=== PATIENT | female | born 1965 | race Caucasian/White ===

== ENCOUNTER → 2017-10-07 | Outpatient (CLI) | payer OTHER ==
[~2017-10-07] MED LIST: ALBU90OI; ALBU90OI6 INH; Aspir 8181 MG; CITA20 PO; Calcium 600 MG1 EACH PO; DIPATR PO; DIPH50 PO; ERGO50000 PO; FISH1000 PO; FLAX PO; FLUSAL1005; FLUSAL2505 INH; FLUSAL5005 IH; FLUSAL5005 INH; HAIR, SKIN & N1 EAC1 PO; HYDACE25S PR; HYDACE5 PO; IBUP800 PO; LORA10 PO; LORA10ER PO; MEGA BIOTIN10000 MCG PO; METR500 PO; MOMENI; MONT10T; MONT10T PO; Magnesium500 M1 PO; Multiple Vitam1 EAC1 PO; OMEP20ER PO; OXYACE5T PO; POLY500 PO; POTCHL20ER PO; PRED20 PO; PROM25 PO; Phentermine HCl15 MG PO; RISE35; RXHYDACE PO; THYROID; TIROSINT50 MCG PO; Zegerid 40 MG1 EACH PO
[2017-10-07 16:05] LABS: BASOPHILS ABSOLUTE AUTO 0.07 K/mm3 (0.00-0.23); BASOPHILS PERCENT AUTO 0 % (0-2); EOSINOPHILS ABSOLUTE AUTO 0.06 K/mm3 (0.00-0.68); EOSINOPHILS PERCENT AUTO 0 % (0-6); Hematocrit 52.2 % (33.0-51.0); Hemoglobin 16.9 g/dL (11.5-16.0); IMMATURE GRAN ABSOLUTE AUTO 0.08 K/mm3 (0.00-0.10); IMMATURE GRAN PERCENT AUTO 1 % (0-1); LYMPHOCYTES PERCENT AUTO 29 % (21-46); MONOCYTES PERCENT AUTO 9 % (4-13); Mean Corpuscular HGB 25.8 pg (26.0-34.0); Mean Corpuscular HGB Conc 32.4 g/dL (31.5-36.5); Mean Corpuscular Volume 80 fL (80-100); Mean Platelet Volume 11.3 fL (9.1-12.4); NEUTROPHILS ABSOLUTE AUTO 10.22 K/mm3 (1.96-9.15); NEUTROPHILS PERCENT AUTO 61 % (41-73); Platelet Count 403 K/mm3 (150-400); RDW Coefficient Variation 16.9 % (11.7-14.2); RDW Standard Deviation 43.8 fL (35.1-46.3); Red Blood Cell Count 6.55 M/mm3 (3.80-5.20); White Blood Cell Count 16.83 K/mm3 (4.00-11.30)
[2017-10-07 16:16] LABS: Albumin/Globulin Ratio 0.7 (0.8-1.8); Bilirubin, Total 0.4 mg/dL (0.1-1.0); Calcium, Blood 7.6 mg/dL (8.5-10.1); Creatinine, Blood 1.64 mg/dL (0.40-1.00); Globulin, Blood 4.1 g/dL (2.2-4.0); Potassium, Blood 4.8 mmol/L (3.5-5.5); Total Protein, Blood 7.1 g/dL (6.4-8.2)
== END ==
LOC: LAB EV 16:01 → LAB SHORT 16:01
PROVIDERS: Physician Assistant
DX: R11.2 Nausea with vomiting, unspecified (principal); R19.7 Diarrhea, unspecified
CPT/HCPCS: 80053; 83690; 85025

== ENCOUNTER → 2019-06-15 | Outpatient (CLI) | payer OTHER ==
[2019-06-15 14:30] LABS: Creatinine, Urine Random 44.3 mg/dL (27.00-270.00); Protein, Urine Random 7.8 mg/dL (0.0-11.9)
== END ==
LOC: LAB 13:14 → LAB SHORT 13:14
PROVIDERS: Internal Medicine
DX: R94.4 Abnormal results of kidney function studies (principal)
CPT/HCPCS: 82570; 84156

== ENCOUNTER 2019-11-25 08:29 | Day surgery (SDC) | payer OTHER ==
[~2019-11-25] VITALS: Ht 160 cm; Wt 85.1 kg
[~2019-11-25 08:29] MED LIST changes: +Aspirin EC81 MG PO; +LEVO-T50 MC1 PO; +ONDA4 PO; +ONDA4ODT MM; +Omeprazole20 M1 PO; +PRINIVIL10 MG PO; +Prinivil10 MG PO; +SYMBICORT 160-4.6 GM INH; +Ventolin/Prove6.7 GM; +ZOFRAN8 MG PO; +ZYRTEC10 M2 PO
== END 2019-11-25 11:03 | disposition home or self-care (01) ==
LOC: ORSCSDS 08:29
PROVIDERS: Surgery
PROC: 0DBH8ZX Excision of Cecum, Via Natural or Artificial Opening Endoscopic, Diagnostic (ICD-10-PCS; principal; 2019-11-25 10:00)
DX: Z12.11 Encounter for screening for malignant neoplasm of colon (principal); D12.0 Benign neoplasm of cecum; F32.9 Major depressive disorder, single episode, unspecified; E03.9 Hypothyroidism, unspecified; I10 Essential (primary) hypertension; J45.909 Unspecified asthma, uncomplicated; Z79.899 Other long term (current) drug therapy; Z87.891 Personal history of nicotine dependence
CPT/HCPCS: 88305; J2704; J7120

== ENCOUNTER 2020-03-27 07:00 | Day surgery (SDC) | payer OTHER ==
[~2020-03-27 07:00] MED LIST changes: +Isosorbide Mono30 MG PO; +LEVSOD75 PO; +METO25ER PO; +Ultram50 MG PO
--- NOTE | 2020-03-27 08:50 | NUR ---
PT PROVIDED WITH MEAL TRAY, TOLERATES WITH NO DIFFICULTIES. TR BAND ON RIGHT WRIST WITH AIR IN, ARM BOARD ON. SITE WITH NO ACTIVE BLEEDING OR OOZING NOTED. PT DENIES PAIN. SOFT NON TENDER. CALL LIGHT IN REACH.
--- NOTE | 2020-03-27 09:30 | NUR ---
RIGHT WRIST TR BAND DEFLATION STARTED. SITE APPEARS SOFT NON TENDER WITH NO ACTIVE BLEEDING, OOZING, OR PAIN NOTED. PT DENIES CP OR SOB. VSS. WILL CONTINUE TO MONITOR.
--- NOTE | 2020-03-27 10:19 | NUR ---
TR BAND REMOVED FROM RIGHT WRIST, RED CLOTH DOT DRESSING APPLIED. ARM BOARD ON FOR SUPPORT. DENIES NEED FOR ARM SLING. VERBALIZED UNDERSTANDING OF D/C INSTRUCTIONS, PAPERWORK PROVIDED IN FOLDER. PT ABLE TO GET DRESSED WITH NO NEEDED ASSISTANCE. AMBULATES TO RESTROOM WITH STEADY GAIT. IV REMOVED FROM LEFT HAND WITH CATH INTACT, PRESSURE DRESSING APPLIED. VSS. FAMILY ARRIVES TO DRIVE PT HOME. DENIES NEED FOR W/C TO GET OUT TO PRIVATE VEHICLE. DENIES CP OR SOB. ALL BELONGINGS SENT WITH PT. ENCOURAGED TO FOLLOW UP SCHEDULED WITH PROVIDER, NO ACUTE DISTRESS NOTED AT TIME OF DISCHARGE.
== END 2020-03-27 10:30 | disposition home or self-care (01) ==
LOC: MHTC 07:00
PROC: B2111ZZ Fluoroscopy of Multiple Coronary Arteries using Low Osmolar Contrast (ICD-10-PCS; principal; 2020-03-27)
PROC: 4A023N7 Measurement of Cardiac Sampling and Pressure, Left Heart, Percutaneous Approach (ICD-10-PCS; principal; 2020-03-27)
DX: I20.8 Other forms of angina pectoris (principal); I10 Essential (primary) hypertension; Q25.0 Patent ductus arteriosus; E03.9 Hypothyroidism, unspecified; K21.9 Gastro-esophageal reflux disease without esophagitis; J45.909 Unspecified asthma, uncomplicated; M81.0 Age-related osteoporosis without current pathological fracture; F32.9 Major depressive disorder, single episode, unspecified; Z87.891 Personal history of nicotine dependence; Z79.51 Long term (current) use of inhaled steroids; Z79.899 Other long term (current) drug therapy; Z91.018 Allergy to other foods; Z91.09 Other allergy status, other than to drugs and biological substances
CPT/HCPCS: 76937; 93458; 99152; 99153; C1769; C1894; J1644; J2250; J3010; J7030; J7040; Q9967

== ENCOUNTER 2021-09-02 12:41 | Emergency (ER) | payer OTHER ==
[~2021-09-02] VITALS: Ht 157.5 cm; Wt 90.7 kg
[2021-09-02] MEDS ORDERED: IBUP800 PO (13:41)
[2021-09-02] MEDS ORDERED: Norco 7.5-3251 EACH PO (13:41)
== END 2021-09-02 14:31 | disposition home or self-care (01) ==
LOC: ER 12:41
DX: S82.031A Displaced transverse fracture of right patella, initial encounter for closed fracture (principal); W01.0XXA Fall on same level from slipping, tripping and stumbling without subsequent striking against object, initial encounter; J45.909 Unspecified asthma, uncomplicated; Z91.010 Allergy to peanuts; Z91.018 Allergy to other foods; Z87.891 Personal history of nicotine dependence
CPT/HCPCS: 73562-RT